=== PATIENT | female | born 1950 | race Caucasian/White ===

== ENCOUNTER → 2016-04-01 | Outpatient (CLI) | payer MEDICARE, OTHER ==
[2016-04-01 13:47] LABS: Blood Urea Nitrogen 13 mg/dL (7-17); Non-African American GFR(MDRD) >60 (>60 ml/min/1.73 sqM)
--- NOTE | 2016-04-01 15:39 | CT ---
EXAMINATION TYPE: CT chest w con DATE OF EXAM: 04/01/2016 2:35 PM COMPARISON: 01/30/2016 and 12/21/2015 HISTORY: 66-year-old female Lung cancer TECHNIQUE: Contiguous axial scanning of the chest after the administration of 100 ml mL of Omnipaque 300. Coronal/sagittal reconstructions performed. CT DLP: 415mGycm. Automatic exposure control utilized for a dose reduction. FINDINGS: Heart is normal size with trace anterior pericardial thickening/fluid. Aorta is normal caliber with a conventional arch vessel branching anatomy and mild to moderate atherosclerotic change in the descen ding aorta. No thoracic lymphadenopathy seen. No residual or recurrent left hilar abnormal soft tissue is identified. There is biapical pleural parenchymal scarring with moderate centrilobular emphysema and mild diffuse bronchial wall thickening. An 8 mm anterior right midlung pulmonary nodule axial image 33 is unchanged and was not metabolic on the prior PET/CT suggesting a benign etiology. There is some minimal patchy opacity in the right midd le lobe noted. The irregular subpleural opacities in the superior segment right lower lobe persist from 01/30/2016 b ut are improved as compared to 12/21/2015. Minimal patchy opacity along the lateral left midlung along the major fissure, axial image 37 is new from prior. Visualized upper abdomen shows no gross abnormality. Bones: A lucency within the right T11 vertebral body was present on the prior PET CT where no FDG upt manjit was demonstrated suggesting a benign etiology. No osseous destructive process. Variable vertebral compression deformities in the mid to lower thoracic spine are unchanged suggesting chronic compress ion injuries. IMPRESSION: 1. COPD with moderate emphysema. There is no evidence for recurrence at the left hilum. The irregular subpleural opacities in the superior segment left lower lobe are unchanged from 01/30/2016 but signi ficantly improved from 12/21/2015, likely representing scarring and areas of treated disease. 2. Minimal new patchy opacity in the lateral left midlung near the major fissure. Continued follow-up is recommended to exclude early metastatic disease here. 3. Some patchy infiltrate in the right middle lobe is also new. Correlate for any infectious signs/sy mptoms.
== END | disposition home or self-care (01) ==
LOC: RADCTMAIN 12:49
PROVIDERS: ATTEND Internal Medicine Hematology & Oncology
DX: C34.90 Malignant neoplasm of unspecified part of unspecified bronchus or lung (principal); J43.9 Emphysema, unspecified; R91.8 Other nonspecific abnormal finding of lung field
CPT/HCPCS: 82565; 84520; 71260; 36415; Q9967

== ENCOUNTER → 2016-04-24 | Outpatient (CLI) | payer MEDICARE, OTHER | END | disposition home or self-care (01) | LOC: LABWHC1 09:04 | PROVIDERS: ATTEND Otolaryngology | DX: E03.9 Hypothyroidism, unspecified (principal) | CPT/HCPCS: 36415; 84439; 84443 ==

== ENCOUNTER → 2016-05-07 | Outpatient (CLI) | payer MEDICARE, OTHER ==
--- NOTE | 2016-05-08 07:36 | US ---
EXAMINATION TYPE: US thyroid st tissue head/neck DATE OF EXAM: 05/07/2016 4:43 PM COMPARISON: 12/28/2014 CLINICAL HISTORY: Thyroid nodules E04.1. F/U previous GLAND SIZE: Right Lobe: 5.3 x 2.1 x 1.9 cm Overall Parenchyma: heterogenous Left Lobe: 4.4 x 1.5 x 1.5 cm Overall Parenchyma: heterogeneous Isthmus Thickness: 0.2 cm NODULES RIGHT: # of nodules measured on right: 1 1. 1.3 X 0.9 x 0.9 cm hypoechoic solid nodule at the mid pole with well-defined margins; This nodul e is wider than tall and shows intranodular vascularity. Prior size: 1.3 x 0.9 x 1.1 cm LEFT: # of nodules measured on left: 2 1. 0.7 X 0.4 x 0.6 cm hypoechoic solid nodule at the lower pole with well-defined margins; This no dule is wider than tall and shows no intranodular vascularity. Prior size: Not visualized on prior 2. 0.6 X 0.3 x 0.6 cm hypoechoic solid nodule at the upper pole with well-defined margins; This nodu le is wider than tall and shows intranodular vascularity. Prior size: 0.6 x 0.3 x 0.6 cm ISTHMUS: # of nodules measured in the isthmus: 0 IMPRESSION: Bilateral neck scanned, no abnormal lymphadenopathy noted/ Nodules seen on previous david ear stable with new sub-centimeter nodule left lower
== END | disposition home or self-care (01) ==
LOC: RADUSWWP 16:29
PROVIDERS: ATTEND Otolaryngology
DX: E04.2 Nontoxic multinodular goiter (principal)
CPT/HCPCS: 76536

== ENCOUNTER → 2016-06-29 | Outpatient (CLI) | payer MEDICARE, OTHER ==
[2016-06-29 11:29] LABS: Blood Urea Nitrogen 15 mg/dL (7-17); Non-African American GFR(MDRD) >60 (>60 ml/min/1.73 sqM)
--- NOTE | 2016-06-29 13:50 | CT ---
EXAMINATION TYPE: CT ChestAbdPelvis w con DATE OF EXAM: 06/29/2016 1:02 PM INDICATION: Patient complains of chest pain and unproductive cough. Patient has a history of small c ell lung CA. COMPARISON: 04/23/2016 chest, 10/20/2015 CT abdomen and pelvis CT DLP: 604.5 mGycm CONTRAST: Performed with Oral Contrast and with IV Contrast, patient injected with 100 mL of Omnipaque 300. TECHNIQUE: Axial images at 5 mm thick sections. Reconstructed images in the coronal plane. Delayed images through the kidneys. FINDINGS: CT CHEST: Portion of the thyroid visualized is normal. Emphysematous changes are present. Some mild pneumonitis change within the posterior left midlung. Th ere is a 0.5 cm density within the right middle lobe, series 6 image 32. Right apical scarring appear s to be present No enlarged mediastinal or hilar adenopathy is evident. The ascending aorta diameter at the level of the main pulmonary artery is 2.5 cm. The main pulmonary artery diameter at the bifurcation is 1.[address] ABDOMEN: Liver: Normal Spleen: Normal Pancreas: Normal Adrenal glands: The adrenal glands are normal. Gallbladder: Normal Kidneys: No masses are evident. No hydronephrosis is present. No cysts are present. Delayed images were obtained through the kidneys, which remain unremarkable. Aorta: Vascular calcification is within the aorta. Inferior vena cava: Normal. CT PELVIS: Loops of bowel within the abdomen and pelvis are normal. There are loops of bowel which are incom pletely distended or lack oral contrast limiting their evaluation. Fecal debris is within the colon. Appendix: Not identified. Clinical management of any suspected appendicitis will be required. Urinary bladder: Limited in evaluation. Large cystocele and herniation below the pelvic inlet is pres ent. Genitourinary structures: Uterus and ovaries are not identified. There is herniation of pelvic struct ures below the suspensor muscles of the pelvis. Herniation extends into the intrathyroidal region. Ur inary bladder as well as contrast filled loops of bowel appear to be present at this level. This was present previously. Osseous structures: No suspicious lytic or sclerotic lesions. Beam hardening artifact from the right hip is evident. Compression deformities of T12, T9, T10 are present. Mild wedge deformities of T6 and T7 are also present. IMPRESSIONS: 1. Herniation of pelvic contents below the pelvic outlet including contrast-filled loops of bowel and urinary bladder. 2. Wedge deformities and compression deformities to the mid and lower thoracic spine discussed above.
== END | disposition home or self-care (01) ==
LOC: RADCTMAIN 10:41
PROVIDERS: ATTEND Internal Medicine Hematology & Oncology
DX: Z03.89 Encounter for observation for other suspected diseases and conditions ruled out (principal); C34.92 Malignant neoplasm of unspecified part of left bronchus or lung; K63.89 Other specified diseases of intestine; N32.89 Other specified disorders of bladder
CPT/HCPCS: 82565; 84520; 71260; 74177; 36415; Q9967

== ENCOUNTER 2016-07-18 16:57 | Emergency (ER) | payer MEDICARE, OTHER ==
[2016-07-18] MEDS ORDERED: SODIUM CHLORIDE 0.9% 1,000 ML IV STA (17:26)
[2016-07-18] MEDS ORDERED: RX INFO: IV CONTRAST WAS GIVEN 1 EACH MISC MISCELLANE PRN (17:29)
--- NOTE | 2016-07-18 17:37 | ED ---
Chest Pain HPI - General Chief Complaint: Chest Pain Stated Complaint: Chest Pain/Fall Time Seen by Provider: 07/18/16 17:10 Source: patient, family, RN notes reviewed Mode of arrival: wheelchair Limitations: no limitations - History of Present Illness Initial Comments: This is a 66-year-old female history of small cell cancer who has received radiation and chemotherapy for this apparently had a recent CAT scan showed no evidence of disease who states she fell a couple days ago and presents now complains of pain to the right chest right upper quadrant and flank area. She also has some pain to the right inferior CVA region. She denies any loss of function to her upper or lower extremity shows complaints of right shoulder pain. She denies any dysuria hematuria MD Complaint: chest pain, other - Related Data Home Medications Medication Instructions Recorded Confirmed Benazepril HCl 10 - 20 mg PO DAILY@1500 08/04/13 07/18/16 Carvedilol [Coreg] 6.25 mg PO BID PRN 08/04/13 07/18/16 Simvastatin [Zocor] 20 mg PO HS 08/04/13 07/18/16 Spironolactone [Aldactone] 25 mg PO DAILY 08/04/13 07/18/16 Ubidecarenone [Coenzyme Q10] 200 mg PO DAILY 08/04/13 07/18/16 Omeprazole [PriLOSEC] 20 mg PO AC-BRKFST 12/21/14 07/18/16 Ipratropium Nebulized [Atrovent 0.5 mg INHALATION RT-QID 04/28/15 07/18/16 Nebulized] Albuterol Nebulized [Ventolin 2.5 mg INHALATION QID 10/20/15 07/18/16 Nebulized] Acyclovir [Zovirax] 800 mg PO DIRECTED PRN 11/14/15 07/18/16 LORazepam [Ativan] 0.5 mg PO BID PRN 11/14/15 07/18/16 Nystatin 100,000 Unit/ml Susp 500,000 unit PO QID PRN 11/14/15 07/18/16 [Mycostatin Oral Susp] Pediatric Multivitamin Comb#30 2 tab PO DAILY 11/14/15 07/18/16 [Multivitamin Children's Gummies] guaiFENesin [Mucinex] 600 mg PO DAILY PRN 11/14/15 07/18/16 tiZANidine [Zanaflex] 4 mg PO QID PRN 11/14/15 07/18/16 Fluticasone/Salmeterol [Advair 1 inhalation PO RT-BID 12/03/15 07/18/16 500-50 Diskus] Nicotine [Nicoderm Cq] 1 patch TRANSDERM HS 12/03/15 07/18/16 Previous Rx's Medication Instructions Recorded Aspirin 81 mg PO DAILY chew 10/28/15 Docusate [Colace] 100 mg PO DAILY PRN #0 cap 10/28/15 HYDROcodone/APAP 10-325MG [Braxton 1 tab PO Q6H PRN #120 tab 10/28/15 10-325] Latanoprost Ophth [Xalatan 0.005%] 1 drops BOTH EYES HS ml 10/28/15 Sertraline [Zoloft] 100 mg PO DAILY tab 10/28/15 Allergies Allergy/AdvReac Type Severity Reaction Status Date / Time Sulfa (Sulfonamide Allergy Severe Anaphylaxis, Verified 07/18/16 18:44 Antibiotics) Hives sulfamethoxazole Allergy Severe Anaphylaxis, Verified 07/18/16 18:44 [From Bactrim] Hives trimethoprim [From Bactrim] Allergy Severe Anaphylaxis, Verified 07/18/16 18:44 Hives erythromycin base Allergy Unknown Nausea & Verified 07/18/16 18:44 [Erythromycin Base] Vomiting morphine Allergy Unknown Verified 07/18/16 18:44 Review of Systems ROS Statement: Those systems with pertinent positive or pertinent negative responses have been documented in the HPI. ROS Other: All systems not noted in ROS Statement are negative. EKG Findings - EKG Results: EKG: interpreted by ERMD, sinus rhythm, normal axis, normal QRS, normal ST/T, no acute changes (Sinus rhythm with rate is 97 ND interval 158 QRS duration 92 QT/QTC of 364/462 this is normal. EKG this is compared with EKG dated 10/20/15 which at that time showed sinus tachycardia with nonspecific changes.) Past Medical History Past Medical History: Coronary Artery Disease (CAD), Cancer, Heart Failure, COPD , Hyperlipidemia, Hypertension Additional Past Medical History / Comment(s): RESPIRATORY FAILURE, heart attach 3 years ago, lung cancer Last Myocardial Infarction Date:: 2011 History of Any Multi-Drug Resistant Organisms: None Reported Past Surgical History: Joint Replacement, Tonsillectomy Additional Past Surgical History / Comment(s): TOTAL RIGHT HIP Past Anesthesia/Blood Transfusion Reactions: No Reported Reaction Additional Past Anesthesia/Blood Transfusion Reaction / Comment(s): PT STATES MOTHER AND SISTER HAD DIFFICULTY BREATHING. Past Psychological History: No Psychological Hx Reported, Depression Smoking Status: Current some day smoker Past Alcohol Use History: None Reported Additional Past Alcohol Use History / Comment(s): "trying to quit" Past Drug Use History: None Reported - Past Family History Mother Family Medical History: No Reported History General Exam - General Exam Comments Initial Comments: This is a well-developed asthenic appearing female awake alert oriented 3 [place] Coma Scale of 15 Limitations: no limitations General appearance: alert, in no apparent distress Head exam: Present: atraumatic, normocephalic, normal inspection Eye exam: Present: normal appearance, PERRL, EOMI. Absent: scleral icterus, conjunctival injection, periorbital swelling ENT exam: Present: normal exam, mucous membranes moist Neck exam: Present: normal inspection. Absent: tenderness, meningismus, lymphadenopathy Respiratory exam: Present: other (Patient does demonstrate kyphosis with some tenderness palpation of the right lateral inferior chest wall no definite step- off or crepitation 70 ecchymosis is noted.) Cardiovascular Exam: Present: regular rate, normal rhythm, normal heart sounds. Absent: systolic murmur, diastolic murmur, rubs, gallop, clicks GI/Abdominal exam: Present: soft, tenderness Rectal exam: Present: deferred (Some right upper quadrant tenderness palpation no definite guarding or rebound.) Extremities exam: Present: normal inspection, tenderness (Is palpation of the right proximal humerus no step-off or crepitation she does demonstrate full range of motion.) Back exam: Present: CVA tenderness (R), paraspinal tenderness. Absent: vertebral tenderness Neurological exam: Present: alert, oriented X3, CN II-XII intact Psychiatric exam: Present: normal affect, normal mood Skin exam: Present: warm, dry, intact, other (Ecchymosis as noted above). Absent: normal color Course Vital Signs 07/18/16 07/18/16 07/18/16 17:00 17:56 19:08 Temperature 98.1 F 98.8 F Pulse Rate 74 96 82 Pulse Rate [ 96 [place] Actor ] Respiratory 20 18 18 Rate Blood Pressure 147/65 106/52 132/60 O2 Sat by Pulse 99 97 100 Oximetry Chest Pain MDM - MDM Did review the imaging and reports no acute findings are seen the patient does know about the pelvic floor herniation. She did decline pain medication she had taken her own before she came to the hospital today. I did discuss findings with her and her family members she'll be discharged home. No evidence of any acute fractures or subluxations. Disposition Clinical Impression: Chest wall contusion, Contusion of rib on right side Disposition: HOME SELF-CARE Condition: Good Instructions: Rib Contusion (ED)
[2016-07-18 17:58] VITALS: RESP 18
[2016-07-18 18:30] LABS: ALT 22 U/L (9-52); AST 17 U/L (14-36); Alkaline Phosphatase 110 U/L (38-126); Amylase 51 U/L (30-110); Anion Gap 10 mmol/L; Blood Urea Nitrogen 15 mg/dL (7-17); Calcium 9.3 mg/dL (8.4-10.2); Carbon Dioxide 24 mmol/L (22-30); Chloride 105 mmol/L (98-107); Glucose 114 mg/dL (74-99); Magnesium 1.8 mg/dL (1.6-2.3); Non-African American GFR(MDRD) >60 (>60 ml/min/1.73 sqM); Potassium 4.4 mmol/L (3.5-5.1); Sodium 139 mmol/L (137-145); Total Bilirubin 0.3 mg/dL (0.2-1.3); Total Protein 6.5 g/dL (6.3-8.2)
[2016-07-18 18:33] LABS: Anisocytosis Slight; Basophils % (A) 1 %; CH 24.2; CHCM 30.7; Eosinophils # (A) 0.1 k/uL (0-0.7); Eosinophils % (A) 3 %; HCT 31.8 % (34.0-46.0); HDW 2.96; HGB 10.1 gm/dL (11.4-16.0); Hypochromasia Moderate; Luc # (Auto) 0.16; Luc % (Auto) 3; Lymphocytes # (A) 1.1 k/uL (1.0-4.8); Lymphocytes % (A) 25 %; MCH 25.2 pg (25.0-35.0); MCHC 31.7 g/dL (31.0-37.0); MCV 79.4 fL (80.0-100.0); Mean Platelet Volume 6.4; Microcytosis Slight; Monocytes # (A) 0.4 k/uL (0-1.0); Monocytes % (A) 9 %; Neutrophils # (A) 2.7 k/uL (1.3-7.7); Neutrophils % (A) 59 %; Partial Thromboplastin Time 27.5 sec (22.0-30.0); Prothrombin Time 9.9 sec (9.0-12.0); RDW 17.1 % (11.5-15.5); WBC 4.6 k/uL (3.8-10.6); WBC (Perox) 4.68
[2016-07-18 18:40] LABS: Amorphous Sediment,Urine Rare /hpf; Appearance,Urine Clear (Clear); Bilirubin,Urine Negative (Negative); Glucose,Urine (UA) Negative (Negative); Ketones,Urine Negative (Negative); Leukocyte Esterase,Urine Small (Negative); Mucus,Urine Rare /hpf; Nitrite,Urine Negative (Negative); Particle Count 2791; Protein,Urine Negative (Negative); RBC,Urine 1 /hpf (0-5); Specific Gravity,Urine 1.014 (1.001-1.035); Squamous Epithelial Cell,Urine 12 /hpf (0-4); UA Billing (MACRO vs. MICRO) MICRO; Urobilinogen,Urine <2.0 mg/dL (<2.0); WBC,Urine 5 /hpf (0-5)
--- NOTE | 2016-07-18 18:50 | XR ---
EXAMINATION TYPE: XR shoulder complete RT DATE OF EXAM: 07/18/2016 6:28 PM COMPARISON: NONE HISTORY: Pain TECHNIQUE: Shoulder examined in 3 views FINDINGS: The humeral head articulates with the glenoid. The acromio-clavicular junction is normal. No acute fractures or dislocations are evident. A follow up study can be performed 7-10 days from acute trauma for continued pain. IMPRESSION: 1. Normal Shoulder
[2016-07-18 18:51] LABS: Creatine Kinase 61 U/L (30-135)
--- NOTE | 2016-07-18 18:51 | XR ---
EXAMINATION TYPE: XR ribs RT DATE OF EXAM: 07/18/2016 6:28 PM COMPARISON: NONE HISTORY: Pain, fall 3 days prior TECHNIQUE: 2 views right ribs FINDINGS: No acute fractures are evident. No pneumothorax is evident on the images. IMPRESSION: 1. Normal right ribs
--- NOTE | 2016-07-18 18:52 | XR ---
EXAMINATION TYPE: XR chest 2V DATE OF EXAM: 07/18/2016 6:28 PM COMPARISON: 10/26/2015 INDICATION: Fall right-sided chest pain TECHNIQUE: 2 view chest FINDINGS: The heart size is normal. The pulmonary vasculature is normal. The lungs are clear. No pneumothorax is evident. Mild compression deformities are within the mid thoracic spine through se veral levels. These were present previously. IMPRESSION: 1. No acute pulmonary process.
[2016-07-18 19:04] LABS: Creatine Kinase MB 1.3 ng/mL (0.0-2.4); Troponin I <0.012 ng/mL (0.000-0.034)
--- NOTE | 2016-07-18 20:14 | CT ---
EXAMINATION TYPE: CT abdomen pelvis w con DATE OF EXAM: 07/18/2016 7:48 PM COMPARISON: NONE INDICATION: Fall today with Right sided injury DLP: 451.7 mGycm, Automated exposure control for dose reduction was used. CONTRAST: 100 mL of Omnipaque 300. Study performed without Oral Contrast TECHNIQUE: Axial images were obtained from above the diaphragm to the pubic rami in the axial plane a t 5 mm thick sections. Reconstructed images are reviewed on the computer in the coronal plane. FINDINGS: Limited CT sections are obtained the lung bases. There is some increased density or pneumonitis florence ge within the posterior medial left lung base. This was present 06/29/2016.. Coronary artery calcific ation is present. CT ABDOMEN: Liver: Normal Spleen: Normal Pancreas: Normal Adrenal glands: The adrenal glands are normal. Gallbladder: Normal Kidneys: No masses are evident. No hydronephrosis is present. No cysts are present. Delayed images were obtained through the kidneys, which remain unremarkable. Aorta: Vascular calcification is within the aorta. Inferior vena cava: Normal. CT PELVIS: There is a hernia through the pelvic floor. There is complete cystocele within the hernia sac. Multiple stones are within the urinary bladder. There are loops of bowel within the hernia which are nondilated. No obstruction is identified. There is a calcification within the left portion of th e hernia but no suspicious changes for hydronephrosis or hydroureter suggests this is a distal ureter al stone. Loops of bowel within the abdomen and pelvis are normal. Studies without oral contrast limiting. Bowel evaluation. Appendix: Normal as visualized. Genitourinary structures: Uterus and ovaries are not identified. Osseous structures: Right hip prosthesis is present. Lower thoracic compression deformity was present previously. IMPRESSIONS: 1. Large herniation through the pelvic floor including the entire urinary bladder containing stones as well as nondilated loops of nonobstructed bowel. Findings are stable 06/29/2016. 2. No post traumatic changes identified.
[2016-07-18 20:33] VITALS: BP 174/70; PULSE 94; TEMP 98.4
== END 2016-07-18 20:33 | disposition home or self-care (01) ==
LOC: EC 16:57
DX: S20.211A Contusion of right front wall of thorax, initial encounter (principal); R10.11 Right upper quadrant pain; M40.204 Unspecified kyphosis, thoracic region; I10 Essential (primary) hypertension; E78.5 Hyperlipidemia, unspecified; I50.9 Heart failure, unspecified; J44.9 Chronic obstructive pulmonary disease, unspecified; F17.200 Nicotine dependence, unspecified, uncomplicated; Z79.51 Long term (current) use of inhaled steroids; Z79.899 Other long term (current) drug therapy; Z88.1 Allergy status to other antibiotic agents; Z88.2 Allergy status to sulfonamides; Z88.5 Allergy status to narcotic agent; Z85.118 Personal history of other malignant neoplasm of bronchus and lung
CPT/HCPCS: 36415; 93005; 83880; 80053; 82150; 82550; 82553; 83690; 83735; 84484; 85025; 85610; 85730; 81001; 71020; 71100; 73030; 74177; 99285; 96360; 96361; Q9967

== ENCOUNTER → 2016-07-22 | Outpatient (CLI) | payer MEDICARE, OTHER ==
--- NOTE | 2016-07-22 17:22 | MR ---
MRI brain with and without contrast HISTORY: Lung carcinoma, headaches and dizziness Multiplanar multisequence and postcontrast images obtained through the brain following 10 cc MultiHan ce IV Correlation to prior MRI brain dated 17 December 2015 Periventricular white matter again shows confluent increased signal on inversion recovery and T2-weig hted sequences, scattered foci of hyperintensity are also present similar to prior exam. There is no hemorrhage or hydrocephalus. Corpus callosum, pituitary, cervical medullary junction, cerebellopontin e angles are stable. There are normal vascular flow voids. Mild inflammatory change present within th e ethmoid air cells. The orbits show symmetric appearance. Stable cortical atrophy. There is no restr icted diffusion. IMPRESSION: Essentially stable exam. Nonspecific white matter demyelination possibly related to chron ic small vessel ischemia. Age-related atrophy.
== END | disposition home or self-care (01) ==
LOC: RADMRIMAIN 16:20
PROVIDERS: ATTEND Internal Medicine Hematology & Oncology
DX: C34.92 Malignant neoplasm of unspecified part of left bronchus or lung (principal); G37.9 Demyelinating disease of central nervous system, unspecified; G31.1 Senile degeneration of brain, not elsewhere classified
CPT/HCPCS: 70553; A9577; 80053

== ENCOUNTER → 2016-10-02 | Outpatient (CLI) | payer MEDICARE, OTHER ==
[2016-10-02 15:08] LABS: Anisocytosis Slight; CH 24.2; CHCM 29.9; HCT 33.1 % (34.0-46.0); HDW 2.67; HGB 10.5 gm/dL (11.4-16.0); Hypochromasia Marked; MCH 25.8 pg (25.0-35.0); MCHC 31.6 g/dL (31.0-37.0); MCV 81.5 fL (80.0-100.0); Mean Platelet Volume 7.3; RBC 4.06 m/uL (3.80-5.40); RDW 17.6 % (11.5-15.5); WBC 5.3 k/uL (3.8-10.6)
[2016-10-02 15:17] LABS: ALT 26 U/L (9-52); AST 22 U/L (14-36); Alkaline Phosphatase 96 U/L (38-126); Anion Gap 11 mmol/L; Blood Urea Nitrogen 8 mg/dL (7-17); Calcium 9.3 mg/dL (8.4-10.2); Carbon Dioxide 23 mmol/L (22-30); Chloride 102 mmol/L (98-107); Glucose 134 mg/dL (74-99); Non-African American GFR(MDRD) >60 (>60 ml/min/1.73 sqM); Potassium 3.8 mmol/L (3.5-5.1); Sodium 136 mmol/L (137-145); Total Bilirubin 0.2 mg/dL (0.2-1.3); Total Protein 6.6 g/dL (6.3-8.2)
--- NOTE | 2016-10-02 16:27 | CT ---
EXAMINATION TYPE: CT ChestAbdPelvis w con DATE OF EXAM: 10/02/2016 COMPARISON: 06/29/2016 HISTORY: Lung cancer, suspected for suspicious METS CT DLP: 1045 mGycm CONTRAST: CT scan of the chest, abdomen and pelvis is performed with Oral Contrast and with IV Contrast, patien t injected with 100 mL of Omnipaque 300. CT Chest: LUNGS: Scattered emphysematous changes again noted. Right apical scarring unchanged. Pleural-based sp iculated density left lower lobe posteriorly measures 1.1 cm versus 1.1 cm previously. Nodular densit y right upper lobe and measures 7 mm and is unchanged. Linear basilar parenchymal scar atelectasis is unchanged. MEDIASTINUM: Thoracic aorta is of normal caliber. The heart is not enlarged. No eviden ce for mediastinal mass or adenopathy. HILAR STRUCTURES: No evidence for mass. No hilar adenopathy is appreciated. OTHER: No significant abnormality. CONTRAST CT ABDOMEN AND PELVIS FINDINGS: LIVER/GB: No calcified gallstones. No space occupying hepatic lesion. Biliary tree is of normal ca liber. PANCREAS: No inflammation. No distinct mass. SPLEEN: No splenic enlargement. No lesion seen. ADRENALS: No nodule. No thickening. KIDNEYS/BLADDER: No hydronephrosis. No nephrolithiasis. No disctinct renal mass. BOWEL: Normal appendix. Normal bowel caliber. No inflammation. GENITAL ORGANS: No gross abnormality. LYMPH NODES: No greater than 1cm abdominal or pelvic lymph nodes are appreciated. AORTA: No significant abnormality. OSSEOUS STRUCTURES: Right hip prosthesis noted. Multiple compression deformities of the lower thoraci c spine unchanged from prior examination. OTHER: Again noted is large pelvic floor hernia which contains loops of small bowel as well as the ur inary bladder. No evidence for bowel obstruction. IMPRESSION: 1. No evidence for metastatic disease. 2. Pleural-based spiculated density left upper lobe posteriorly is unchanged and may reflect site of postsurgical change. Correlate clinically. Underlying COPD and scattered nodularity unchanged. 3. Large hernia of the pelvic floor containing small bowel loops and urinary bladder.
== END | disposition home or self-care (01) ==
LOC: RADCTMAIN 14:42
PROVIDERS: ATTEND Internal Medicine Hematology & Oncology
DX: C34.92 Malignant neoplasm of unspecified part of left bronchus or lung (principal); R91.8 Other nonspecific abnormal finding of lung field; J44.9 Chronic obstructive pulmonary disease, unspecified; D63.0 Anemia in neoplastic disease; M48.54XA Collapsed vertebra, not elsewhere classified, thoracic region, initial encounter for fracture; K45.8 Other specified abdominal hernia without obstruction or gangrene; Z98.890 Other specified postprocedural states
CPT/HCPCS: 80053; 85027; 71260; 74177; 36415; Q9967

== ENCOUNTER 2016-10-09 18:20 | Emergency (ER) | payer MEDICARE, OTHER ==
[2016-10-09 19:45] LABS: Anisocytosis Slight; Basophils # (A) 0.1 k/uL (0-0.2); Basophils % (A) 1 %; CH 25.3; Eosinophils # (A) 0.2 k/uL (0-0.7); Eosinophils % (A) 3 %; HCT 33.1 % (34.0-46.0); HDW 2.81; HGB 10.2 gm/dL (11.4-16.0); Hypochromasia Moderate; Luc # (Auto) 0.13; Luc % (Auto) 2; Lymphocytes # (A) 1.3 k/uL (1.0-4.8); Lymphocytes % (A) 22 %; MCH 25.4 pg (25.0-35.0); MCHC 30.9 g/dL (31.0-37.0); MCV 82.1 fL (80.0-100.0); Mean Platelet Volume 7.7; Monocytes # (A) 0.4 k/uL (0-1.0); Monocytes % (A) 8 %; Neutrophils # (A) 3.6 k/uL (1.3-7.7); Neutrophils % (A) 64 %; RBC 4.03 m/uL (3.80-5.40); RDW 18.2 % (11.5-15.5); WBC 5.7 k/uL (3.8-10.6)
[2016-10-09 19:53] LABS: Anion Gap 7 mmol/L; Blood Urea Nitrogen 10 mg/dL (7-17); Calcium 8.8 mg/dL (8.4-10.2); Carbon Dioxide 27 mmol/L (22-30); Chloride 105 mmol/L (98-107); Glucose 104 mg/dL (74-99); Non-African American GFR(MDRD) >60 (>60 ml/min/1.73 sqM); Potassium 4.2 mmol/L (3.5-5.1); Sodium 139 mmol/L (137-145)
[2016-10-09 20:06] LABS: Partial Thromboplastin Time 27.4 sec (22.0-30.0)
--- NOTE | 2016-10-09 21:19 | MR ---
EXAMINATION TYPE: MR angio head wo con DATE OF EXAM: 10/09/2016 COMPARISON: NONE HISTORY: Sudden onset of Right Dilated Pupil x1 day TECHNIQUE: Time of flight images focusing on the [place] of [place] were performed without contrast. FINDINGS: There is arterial flow in the vertebrobasilar artery system. There is arterial flow in the anterior middle and posterior cerebral arteries. There is bilateral flow in the posterior communicati ng arteries. There is no mass effect. There is no midline shift. There is irregular appearance of the left middle cerebral artery. It is not clear if this is related to stenosis or artifact.. There is a rterial flow in both distal internal carotid arteries. IMPRESSION: There is irregular lumen of the left middle cerebral artery and multisegment stenosis cannot be exclu ded. No evidence of an aneurysm. If there is persistent clinical indication a CT angiogram would be h elpful to confirm or exclude left middle cerebral artery pathology.
--- NOTE | 2016-10-09 21:38 | ED ---
Recheck HPI - General Chief Complaint: Recheck/Abnormal Lab/Rx Stated Complaint: Vision, DR SENT- STAT MRI Time Seen by Provider: 10/09/16 18:47 Source: patient Mode of arrival: wheelchair Limitations: no limitations - History of Present Illness Initial Comments: 66 her female with past medical history of CAD, heart failure, COPD, HLD, HTN, lung cancer presented for evaluation of focal neurologic deficit. She states she noted that her left pupil was much larger than the right earlier today however she denies any change in her vision because she has chronic blurred vision in that left side at baseline. She went to see her goat farmer who examined her and was concerned for an aneurysm at the [place] of [place]. He sent her to the hospital for an MRA. The patient arrived at the MRI suite but was sent to the ED to obtain an order for the imaging study. She denies any other abnormalities. - Related Data Home Medications Medication Instructions Recorded Confirmed Benazepril HCl 10 - 20 mg PO DAILY@1500 08/04/13 07/18/16 Carvedilol [Coreg] 6.25 mg PO BID PRN 08/04/13 07/18/16 Simvastatin [Zocor] 20 mg PO HS 08/04/13 07/18/16 Spironolactone [Aldactone] 25 mg PO DAILY 08/04/13 07/18/16 Ubidecarenone [Coenzyme Q10] 200 mg PO DAILY 08/04/13 07/18/16 Omeprazole [PriLOSEC] 20 mg PO AC-BRKFST 12/21/14 07/18/16 Ipratropium Nebulized [Atrovent 0.5 mg INHALATION RT-QID 04/28/15 07/18/16 Nebulized] Albuterol Nebulized [Ventolin 2.5 mg INHALATION QID 10/20/15 07/18/16 Nebulized] Acyclovir [Zovirax] 800 mg PO DIRECTED PRN 11/14/15 07/18/16 LORazepam [Ativan] 0.5 mg PO BID PRN 11/14/15 07/18/16 Nystatin 100,000 Unit/ml Susp 500,000 unit PO QID PRN 11/14/15 07/18/16 [Mycostatin Oral Susp] Pediatric Multivitamin No.30 2 tab PO DAILY 11/14/15 07/18/16 [Multivitamin Children's Gummies] guaiFENesin [Mucinex] 600 mg PO DAILY PRN 11/14/15 07/18/16 tiZANidine [Zanaflex] 4 mg PO QID PRN 11/14/15 07/18/16 Fluticasone/Salmeterol [Advair 1 inhalation PO RT-BID 12/03/15 07/18/16 500-50 Diskus] Nicotine [Nicoderm Cq] 1 patch TRANSDERM HS 12/03/15 07/18/16 Previous Rx's Medication Instructions Recorded Aspirin 81 mg PO DAILY chew 10/28/15 Docusate [Colace] 100 mg PO DAILY PRN #0 cap 10/28/15 HYDROcodone/APAP 10-325MG [[place] 1 tab PO Q6H PRN #120 tab 10/28/15 10-325] Latanoprost Ophth [Xalatan 0.005%] 1 drops BOTH EYES HS ml 10/28/15 Sertraline [Zoloft] 100 mg PO DAILY tab 10/28/15 Allergies Allergy/AdvReac Type Severity Reaction Status Date / Time Sulfa (Sulfonamide Allergy Severe Anaphylaxis, Verified 10/09/16 18:37 Antibiotics) Hives sulfamethoxazole Allergy Severe Anaphylaxis, Verified 10/09/16 18:37 [From Bactrim] Hives trimethoprim [From Bactrim] Allergy Severe Anaphylaxis, Verified 10/09/16 18:37 Hives erythromycin base Allergy Unknown Nausea & Verified 10/09/16 18:37 [Erythromycin Base] Vomiting morphine Allergy Unknown Verified 10/09/16 18:37 Review of Systems ROS Statement: Those systems with pertinent positive or pertinent negative responses have been documented in the HPI. ROS Other: All systems not noted in ROS Statement are negative. Constitutional: Denies: fever, chills Eyes: Reports: other (dilated left pupil compared to the right). Denies: eye pain, eye discharge, vision change ENT: Denies: ear pain, throat pain, hearing loss Respiratory: Denies: cough, dyspnea, wheezes, hemoptysis, stridor Cardiovascular: Denies: chest pain, palpitations, dyspnea on exertion Endocrine: Denies: fatigue, polydipsia, polyuria Gastrointestinal: Denies: abdominal pain, nausea, vomiting Genitourinary: Denies: urgency, dysuria Musculoskeletal: Denies: back pain, arthralgia, myalgia Skin: Denies: rash, lesions Neurological: Denies: headache, weakness Psychiatric: Denies: anxiety, depression Hematological/Lymphatic: Denies: easy bleeding, easy bruising Past Medical History Past Medical History: Coronary Artery Disease (CAD), Cancer, Heart Failure, COPD , Hyperlipidemia, Hypertension Additional Past Medical History / Comment(s): RESPIRATORY FAILURE, heart attach 3 years ago, lung cancer Last Myocardial Infarction Date:: 2011 History of Any Multi-Drug Resistant Organisms: None Reported Past Surgical History: Joint Replacement, Tonsillectomy Additional Past Surgical History / Comment(s): TOTAL RIGHT HIP Past Anesthesia/Blood Transfusion Reactions: No Reported Reaction Additional Past Anesthesia/Blood Transfusion Reaction / Comment(s): PT STATES MOTHER AND SISTER HAD DIFFICULTY BREATHING. Past Psychological History: No Psychological Hx Reported, Depression Smoking Status: Current some day smoker Past Alcohol Use History: None Reported Past Drug Use History: None Reported - Past Family History Mother Family Medical History: No Reported History General Exam Limitations: no limitations General appearance: alert, in no apparent distress Head exam: Present: atraumatic, normocephalic, normal inspection Eye exam: Present: normal appearance, PERRL, EOMI, other (ptosis of left eye ( baseline); mild swelling to the left eyelid). Absent: scleral icterus, conjunctival injection, periorbital swelling Pupils: Present: normal accommodation ENT exam: Present: normal exam, mucous membranes moist Neck exam: Present: normal inspection. Absent: tenderness, meningismus, lymphadenopathy Respiratory exam: Present: normal lung sounds bilaterally, other (on 2L O2 due to COPD). Absent: respiratory distress, wheezes, rales, rhonchi, stridor Cardiovascular Exam: Present: regular rate, normal rhythm, normal heart sounds. Absent: systolic murmur, diastolic murmur, rubs, gallop, clicks GI/Abdominal exam: Present: soft, normal bowel sounds. Absent: distended, tenderness, guarding, rebound, rigid Rectal exam: Present: deferred Extremities exam: Present: normal inspection, full ROM, normal capillary refill. Absent: tenderness, pedal edema, joint swelling, calf tenderness Back exam: Present: normal inspection Neurological exam: Present: alert, oriented X3, CN II-XII intact Psychiatric exam: Present: normal affect, normal mood Skin exam: Present: warm, dry, intact, normal color. Absent: rash Course Vital Signs 10/09/16 10/09/16 10/09/16 18:35 19:35 20:52 Temperature 97 F L Pulse Rate 98 87 80 Respiratory 20 18 18 Rate Blood Pressure 108/52 116/55 126/60 O2 Sat by Pulse 99 94 L 97 Oximetry Medical Decision Making - Medical Decision Making 66-year-old female sent for MRI by her goat farmer due to dilated left pupil. Irregularity has since resolved but her neurologist wants to have the study obtained regardless. She states there is no change in her vision but she has decreased vision in the left eye at baseline. There is also baseline ptosis to the left eyelids but she states they have been a little bit more puffy and swollen for the last couple days only on the left. His ago examination the ptosis is noted although pupils are equal round and reactive to light and accommodation. Cranial nerves II through XII are intact without focal neurologic deficit. The patient is noted to be ambulating with normal gait and station. Dr. Sanchez was contacted and discussed his reasoning for the MRA. MRI was contacted and the environmental science technician advised on the proper study to obtain. Labs revealed no significant abnormalities. MRI of the brain showed a regular lumen of the left middle cerebral artery and multisegmental stenosis cannot be excluded. There is no evidence of an aneurysm. The patient was informed of these results and offered admission for further imaging and neuro consult however she stated that she would like to be discharged home. She is informed of potential complications that could result if the stenosis was not due to artifact and represented narrowing. She was informed that it could result in a stroke among many other things. She was further advised that other pathology would need to be ruled out. However the patient is stable and she remained adamant that she would prefer to follow-up as an outpatient. She was advised to make an appointment with her primary care physician and was given referral for neurologist. She was further informed to return to this facility if her symptoms should worsen or persist and was given return instructions. The patient acknowledged an understanding of this information and agreed with this plan of care. - Lab Data Result diagrams: 10/09/16 19:20 10/09/16 19:20 Lab Results 10/09/16 10/09/16 10/09/16 Range/Units 19:20 19:20 19:20 WBC 5.7 (3.8-10.6) k/uL RBC 4.03 (3.80-5.40) m/uL Hgb 10.2 L (11.4-16.0) gm/dL Hct 33.1 L (34.0-46.0) % MCV 82.1 (80.0-100.0) fL MCH 25.4 (25.0-35.0) pg MCHC 30.9 L (31.0-37.0) g/dL RDW 18.2 H (11.5-15.5) % Plt Count 197 (150-450) k/uL Neutrophils % 64 % Lymphocytes % 22 % Monocytes % 8 % Eosinophils % 3 % Basophils % 1 % Neutrophils # 3.6 (1.3-7.7) k/uL Lymphocytes # 1.3 (1.0-4.8) k/uL Monocytes # 0.4 (0-1.0) k/uL Eosinophils # 0.2 (0-0.7) k/uL Basophils # 0.1 (0-0.2) k/uL Hypochromasia Moderate Anisocytosis Slight PT 10.0 (9.0-12.0) sec INR 1.0 (<1.2) APTT 27.4 (22.0-30.0) sec Sodium 139 (137-145) mmol/L Potassium 4.2 (3.5-5.1) mmol/L Chloride 105 (98-107) mmol/L Carbon Dioxide 27 (22-30) mmol/L Anion Gap 7 mmol/L BUN 10 (7-17) mg/dL Creatinine 0.67 (0.52-1.04) mg/dL Est GFR (MDRD) Af Amer >60 (>60 ml/min/1.73 sqM) Est GFR (MDRD) Non-Af >60 (>60 ml/min/1.73 sqM) Glucose 104 H (74-99) mg/dL Calcium 8.8 (8.4-10.2) mg/dL Disposition Clinical Impression: Resolved focal neurological deficit Disposition: HOME SELF-CARE Condition: Stable Instructions: Transient Ischemic Attack (ED), Ischemic Stroke (DC) Referrals: Giuseppe Hernandez MD [Primary Care Provider] - 1-2 days Veronika Reaves MD [STAFF PHYSICIAN] - 1-2 days Time of Disposition: 21:38
[2016-10-09 22:08] VITALS: BP 134/63; PULSE 89; RESP 16; TEMP 97.8
== END 2016-10-09 22:07 | disposition home or self-care (01) ==
LOC: EC 18:20
DX: H57.04 Mydriasis (principal); H53.8 Other visual disturbances; H54.7 Unspecified visual loss; H02.402 Unspecified ptosis of left eyelid; E78.5 Hyperlipidemia, unspecified; I11.0 Hypertensive heart disease with heart failure; I50.9 Heart failure, unspecified; J44.9 Chronic obstructive pulmonary disease, unspecified; I25.2 Old myocardial infarction; F17.200 Nicotine dependence, unspecified, uncomplicated; Z79.51 Long term (current) use of inhaled steroids; Z79.899 Other long term (current) drug therapy; Z88.1 Allergy status to other antibiotic agents; Z88.2 Allergy status to sulfonamides; Z88.5 Allergy status to narcotic agent; Z99.81 Dependence on supplemental oxygen
CPT/HCPCS: 36415; 70544; 80048; 85025; 85610; 85730; 99284

== ENCOUNTER → 2016-12-28 | Outpatient (CLI) | payer MEDICARE, OTHER ==
[2016-12-28 15:48] LABS: Blood Urea Nitrogen 15 mg/dL (7-17); Non-African American GFR(MDRD) >60 (>60 ml/min/1.73 sqM)
--- NOTE | 2016-12-28 20:51 | CT ---
EXAMINATION TYPE: CT ChestAbdPelvis w con DATE OF EXAM: 12/28/2016 COMPARISON: 10/02/2016 HISTORY: lt lung small cell ca/poss mets CT DLP: 643.30 mGycm Automated exposure control for dose reduction was used. CONTRAST: CT scan of the chest, abdomen and pelvis is performed with Oral Contrast and with IV Contrast, patien t injected with 100 mL of Omnipaque 300. FINDINGS: LUNGS: Scattered emphysematous changes again noted. Right apical scarring unchanged. Pleural-based sp iculated density left lower lobe posteriorly measures 1.1 cm versus 1.1 cm previously. Nodular densit y right upper lobe and measures 7 mm and is unchanged. Nodular density right lower lobe image 48 is s table. Emphysematous changes are noted. Additional 5 mm nodular density superior segment right lower lobe axial image 27 stable. Vague nodularity left lower lobe measuring approximately 5 mm with at [address] 3 nodules noted also appears stable. Axial image 44. Linear basilar parenchymal scar atelectasis i s unchanged. Peribronchial wall thickening bilaterally greater on the left is stable. MEDIASTINUM: Thoracic aorta is of normal caliber. The heart is not enlarged. Stable density posterior pulmonary trunk measures 7 Hounsfield units may reflect a small amount of pericardial fluid.. HILAR STRUCTURES: No evidence for mass. No hilar adenopathy is appreciated. OTHER: There is a displaced sternal fracture appears chronic. Correlate clinically. Sclerosis in the region to suggest possible underlying pathologic fracture. There is small focal areas of sclerosis in volving the scapula and a few of the ribs which are too small to characterize. Early metastasis is no t excluded. CONTRAST CT ABDOMEN AND PELVIS FINDINGS: LIVER/GB: No calcified gallstones. No space occupying hepatic lesion. Biliary tree is of normal calib er. PANCREAS: No inflammation. No distinct mass. SPLEEN: No splenic enlargement. No lesion seen. ADRENALS: No nodule. No thickening. KIDNEYS/BLADDER: Mild bilateral pelvocaliectasis noted which appears stable may be related to the gal lbladder malpositioning cystocele. Correlate clinically. No nephrolithiasis. No distinct renal mass. Cannot exclude bladder calculi. BOWEL: Normal appendix. Normal bowel caliber. No inflammation. LYMPH NODES: No greater than 1cm abdominal or pelvic lymph nodes are appreciated. AORTA: No significant abnormality. OSSEOUS STRUCTURES: Right hip prosthesis noted. Multiple compression deformities of the lower thoraci c spine unchanged from prior examination. OTHER: Again noted is large pelvic floor hernia which contains loops of small bowel as well as the ur inary bladder. No evidence for bowel obstruction. IMPRESSION: 1. No evidence for metastatic disease. 2. Pleural-based spiculated density left upper lobe posteriorly is unchanged and may reflect site of postsurgical change. Correlate clinically. Underlying COPD and scattered nodularity unchanged. 3. Large hernia of the pelvic floor containing small bowel loops and urinary bladder. 4. Chronic appearing displaced sternal fracture. 5. Mild bilateral hydronephrosis likely secondary to the cystocele and abnormal position of the bladd er. Findings stable.
== END | disposition home or self-care (01) ==
LOC: RADCTMAIN 15:14
PROVIDERS: ATTEND Internal Medicine Hematology & Oncology
DX: C34.92 Malignant neoplasm of unspecified part of left bronchus or lung (principal); J98.4 Other disorders of lung; N13.30 Unspecified hydronephrosis
CPT/HCPCS: 82565; 84520; 71260; 74177; 36415; Q9967

== ENCOUNTER → 2017-03-29 | Outpatient (CLI) | payer MEDICARE, OTHER ==
[2017-03-29 16:43] LABS: Blood Urea Nitrogen 14 mg/dL (7-17)
--- NOTE | 2017-03-30 09:00 | CT ---
EXAMINATION TYPE: CT ChestAbdPelvis w con DATE OF EXAM: 03/29/2017 COMPARISON: 12/28/2016, 06/29/2016 and PET/CT dated 12/21/2015. HISTORY: Follow-up lung cancer. CT DLP: 677.4 mGycm. Automated Exposure Control for Dose Reduction was Utilized. CONTRAST: CT scan of the thorax, abdomen and pelvis is performed with IV Contrast, patient injected with 100 mL of Omnipaque 300. FINDINGS: LUNGS: Nodular right apical pleural thickening is unchanged. Moderate centrilobular and paraseptal em physema is most exaggerated at the lung apices. Spiculated density at the posterior margin of the lef t lower lobe on series 6 image 21 abutting the pleural surface is similar to the prior measuring appr oximately 1.5 cm, when measured on the prior exam this also measures 1.5 cm although it was stated to measure 1.1 cm. This appears unchanged. 7 mm rounded right upper lobe pulmonary nodule on series 6 i mage 27 is also unchanged. Superior segment right lower lobe 5 mm pulmonary nodule is stable from the prior. This is on series 6 image 19. Subcentimeter nodular regions within the left lung base and edilma gula on series 6 image 38 are also stable from the prior. There is no pleural effusion or pneumothora x seen. The tracheobronchial tree is patent. No residual soft tissue is seen in the region of the le ft gerry at the site of previously biopsy-proven carcinoma. Similar right upper lobe groundglass densi ty and series 6 image 9 is again seen. MEDIASTINUM: There are no greater than 1 cm hilar or mediastinal lymph nodes. Elongated fluid density in the aorticopulmonary window on series 3 image 24 measures approximately 3.4 x 1.3 cm and is uncha nged from prior, possibly posttreatment change or loculated fluid such as in the aortic recess. Mild coronary calcifications are seen. Heart is not enlarged. LIVER/GB: No hepatic masses are identified. No intrahepatic biliary ductal dilatation. Gallbladder is unremarkable without cholelithiasis.. PANCREAS: Mild pancreatic parenchymal atrophy without ductal dilatation. SPLEEN: No splenomegaly. ADRENALS: Adrenal glands are unchanged from the PET/CT of 2016 with no focal mass. Slight thickening of the left adrenal gland may relate to adrenal gland hyperplasia. KIDNEYS: Kidneys enhance symmetrically without focal lesion. BOWEL: There is redemonstration of a pelvic floor hernia containing a cystocele and loops of small schuyler wel which do not appear obstructed at this time with no proximal dilatation or pneumatosis intestinal is. No bowel obstruction. LYMPH NODES: No greater than 1cm abdominal or pelvic lymph nodes are appreciated. OSSEOUS STRUCTURES: Right femoral arthroplasty is noted. Multiple compression deformities of the lowe r thoracic spine are similar to the prior. No suspicious osseous lesion. IMPRESSION: 1. Stable bilateral pulmonary nodules dating back to 06/29/2016 superimposed upon moderate centrilobul ar and paraseptal emphysematous changes. No new pulmonary nodules. No residual soft tissue density at the left gerry in the region of the patient's previously biopsied and treated lung carcinoma. 2. No evidence of visceral, lymphatic, or osseous metastasis within the abdomen or pelvis. 3. Large pelvic floor herniation, similar to the prior exam containing loops of herniated small bowel without current evidence of obstruction.
== END | disposition home or self-care (01) ==
LOC: RADCTMAIN 16:03
PROVIDERS: ATTEND Internal Medicine Hematology & Oncology
DX: C34.92 Malignant neoplasm of unspecified part of left bronchus or lung (principal); J43.2 Centrilobular emphysema; K45.8 Other specified abdominal hernia without obstruction or gangrene; R91.8 Other nonspecific abnormal finding of lung field
CPT/HCPCS: 82565; 84520; 71260; 74177; 36415; Q9967

== ENCOUNTER → 2017-08-06 | Outpatient (CLI) | payer MEDICARE, OTHER ==
--- NOTE | 2017-08-06 21:36 | XR ---
EXAMINATION TYPE: XR thoracic spine complete DATE OF EXAM: 08/06/2017 COMPARISON: NONE HISTORY: Back pain TECHNIQUE: 3 views FINDINGS: There is osteopenia. There is thoracic kyphotic deformity with anterior wedging of several thoracic vertebra. There is 25% wedging of T10. 50% wedging of T8. 25% wedging of T7 and T6. 50% wedg ing of T5 and T4. There is no paraspinal mass. The posterior elements appear intact. IMPRESSION: Numerous osteoporotic type thoracic compression fractures. The fractures show significant progression compared to the old chest x-ray of 07/18/2016.
== END | disposition home or self-care (01) ==
LOC: RADMRIMAIN 20:13
PROVIDERS: ATTEND Internal Medicine
DX: M48.54XA Collapsed vertebra, not elsewhere classified, thoracic region, initial encounter for fracture (principal); C34.92 Malignant neoplasm of unspecified part of left bronchus or lung
CPT/HCPCS: 72072

== ENCOUNTER 2017-08-16 01:37 | Emergency (ER) | payer MEDICARE, OTHER ==
[2017-08-16] MEDS ORDERED: HYDROcodone/APAP 10-325MG 1 EACH TAB PO ONE (02:04)
--- NOTE | 2017-08-16 02:09 | ED ---
Back Pain HPI - General Chief Complaint: Back Pain/Injury Stated Complaint: Back Pain, Abdominal Pain Time Seen by Provider: 08/16/17 01:45 Source: patient Limitations: no limitations - History of Present Illness Initial Comments: This patient is a 67-year-old woman who presents with pain that radiates from her back around both sides of her chest. She states that is been going on for about a week but is been getting worse. She initially noted that the day after she had been doing some reaching above her head to put some things away. She describes the pain as aching, it is now moderate severe. The pain does get worse if she moves or if she presses on the area along the margin of the ribs. She also states that she has had this pain previously with constipation though she believes she did have reasonable bowel movements this week. MD Complaint: back pain Onset/Timin -: week(s) Similar Symptoms Previously: Yes Place: home Radiation: none Severity: severe Quality: aching Consistency: constant Worsens With: movement Associated Symptoms: denies other symptoms - Related Data Home Medications Medication Instructions Recorded Confirmed Benazepril HCl 10 - 20 mg PO DAILY@1500 08/04/13 07/18/16 Carvedilol [Coreg] 6.25 mg PO BID PRN 08/04/13 07/18/16 Simvastatin [Zocor] 20 mg PO HS 08/04/13 07/18/16 Spironolactone [Aldactone] 25 mg PO DAILY 08/04/13 07/18/16 Ubidecarenone [Coenzyme Q10] 200 mg PO DAILY 08/04/13 07/18/16 Omeprazole [PriLOSEC] 20 mg PO AC-BRKFST 12/21/14 07/18/16 Ipratropium Nebulized [Atrovent 0.5 mg INHALATION RT-QID 04/28/15 07/18/16 Nebulized] Albuterol Nebulized [Ventolin 2.5 mg INHALATION QID 10/20/15 07/18/16 Nebulized] Acyclovir [Zovirax] 800 mg PO DIRECTED PRN 11/14/15 07/18/16 LORazepam [Ativan] 0.5 mg PO BID PRN 11/14/15 07/18/16 Nystatin 100,000 Unit/ml Susp 500,000 unit PO QID PRN 11/14/15 07/18/16 [Mycostatin Oral Susp] Pediatric Multivitamin No.30 2 tab PO DAILY 11/14/15 07/18/16 [Multivitamin Children's Gummies] guaiFENesin [Mucinex] 600 mg PO DAILY PRN 11/14/15 07/18/16 tiZANidine [Zanaflex] 4 mg PO QID PRN 11/14/15 07/18/16 Fluticasone/Salmeterol [Advair 1 inhalation PO RT-BID 12/03/15 07/18/16 500-50 Diskus] Nicotine [Nicoderm Cq] 1 patch TRANSDERM HS 12/03/15 07/18/16 Previous Rx's Medication Instructions Recorded Aspirin 81 mg PO DAILY chew 10/28/15 Docusate [Colace] 100 mg PO DAILY PRN #0 cap 10/28/15 HYDROcodone/APAP 10-325MG [[place] 1 tab PO Q6H PRN #120 tab 10/28/15 10-325] Latanoprost Ophth [Xalatan 0.005%] 1 drops BOTH EYES HS ml 10/28/15 Sertraline [Zoloft] 100 mg PO DAILY tab 10/28/15 Allergies Allergy/AdvReac Type Severity Reaction Status Date / Time Sulfa (Sulfonamide Allergy Severe Anaphylaxis, Verified 08/16/17 01:45 Antibiotics) Hives sulfamethoxazole Allergy Severe Anaphylaxis, Verified 08/16/17 01:45 [From Bactrim] Hives trimethoprim [From Bactrim] Allergy Severe Anaphylaxis, Verified 08/16/17 01:45 Hives erythromycin base Allergy Unknown Nausea & Verified 08/16/17 01:45 [Erythromycin Base] Vomiting Review of Systems ROS Statement: Those systems with pertinent positive or pertinent negative responses have been documented in the HPI. ROS Other: All systems not noted in ROS Statement are negative. Constitutional: Denies: fever, chills, weakness Respiratory: Denies: cough, dyspnea Cardiovascular: Reports: chest pain. Denies: palpitations, orthopnea, edema Gastrointestinal: Reports: as per HPI, abdominal pain. Denies: nausea, vomiting , diarrhea, constipation Genitourinary: Denies: dysuria, hematuria Musculoskeletal: Reports: as per HPI, back pain Skin: Denies: rash Neurological: Denies: headache Past Medical History Past Medical History: Coronary Artery Disease (CAD), Cancer, Heart Failure, COPD , Hyperlipidemia, Hypertension Additional Past Medical History / Comment(s): RESPIRATORY FAILURE, heart attach 3 years ago, lung cancer, Rib 9 FX Last Myocardial Infarction Date:: 2011 History of Any Multi-Drug Resistant Organisms: None Reported Past Surgical History: Joint Replacement, Tonsillectomy Additional Past Surgical History / Comment(s): TOTAL RIGHT HIP, Past Anesthesia/Blood Transfusion Reactions: No Reported Reaction Additional Past Anesthesia/Blood Transfusion Reaction / Comment(s): PT STATES MOTHER AND SISTER HAD DIFFICULTY BREATHING. Past Psychological History: No Psychological Hx Reported, Depression Smoking Status: Current some day smoker Past Alcohol Use History: None Reported Past Drug Use History: None Reported - Past Family History Mother Family Medical History: No Reported History General Exam Limitations: no limitations General appearance: alert, in no apparent distress Head exam: Present: atraumatic, normocephalic Eye exam: Present: normal appearance. Absent: scleral icterus, conjunctival injection ENT exam: Present: normal oropharynx Neck exam: Present: normal inspection Respiratory exam: Present: normal lung sounds bilaterally, chest wall tenderness. Absent: respiratory distress, wheezes, rales, rhonchi, stridor Cardiovascular Exam: Present: regular rate, normal rhythm, normal heart sounds. Absent: systolic murmur, diastolic murmur, rubs, gallop GI/Abdominal exam: Present: soft, tenderness. Absent: distended, guarding, rebound, organomegaly, mass, pulsatile mass, hernia Extremities exam: Present: normal inspection, normal capillary refill. Absent: pedal edema, calf tenderness Back exam: Present: normal inspection. Absent: CVA tenderness (R), CVA tenderness (L), vertebral tenderness Neurological exam: Present: alert Skin exam: Present: warm, dry, intact, normal color. Absent: rash Course Vital Signs 08/16/17 08/16/17 08/16/17 01:40 03:01 04:22 Temperature 97.5 F L Pulse Rate 98 86 86 Respiratory 18 18 18 Rate Blood Pressure 162/93 139/63 130/59 O2 Sat by Pulse 99 100 99 Oximetry Medical Decision Making - Lab Data Result diagrams: 08/16/17 02:15 08/16/17 02:15 Lab Results 08/16/17 08/16/17 08/16/17 Range/Units 02:15 02:15 02:15 WBC 4.8 (3.8-10.6) k/uL RBC 3.98 (3.80-5.40) m/uL Hgb 12.2 (11.4-16.0) gm/dL Hct 37.5 (34.0-46.0) % MCV 94.3 (80.0-100.0) fL MCH 30.7 (25.0-35.0) pg MCHC 32.5 (31.0-37.0) g/dL RDW 13.8 (11.5-15.5) % Plt Count 228 (150-450) k/uL Neutrophils % 53 % Lymphocytes % 30 % Monocytes % 9 % Eosinophils % 5 % Basophils % 1 % Neutrophils # 2.5 (1.3-7.7) k/uL Lymphocytes # 1.4 (1.0-4.8) k/uL Monocytes # 0.4 (0-1.0) k/uL Eosinophils # 0.2 (0-0.7) k/uL Basophils # 0.0 (0-0.2) k/uL D-Dimer 0.84 H (<0.60) mg/L FEU Sodium 142 (137-145) mmol/L Potassium 3.9 (3.5-5.1) mmol/L Chloride 103 (98-107) mmol/L Carbon Dioxide 30 (22-30) mmol/L Anion Gap 9 mmol/L BUN 17 (7-17) mg/dL Creatinine 0.70 (0.52-1.04) mg/dL Est GFR (CKD-EPI)AfAm >90 (>60 ml/min/1.73 sqM) Est GFR (CKD-EPI)NonAf 89 (>60 ml/min/1.73 sqM) Glucose 111 H (74-99) mg/dL Calcium 9.1 (8.4-10.2) mg/dL Total Bilirubin <0.1 L (0.2-1.3) mg/dL AST 19 (14-36) U/L ALT 33 (9-52) U/L Alkaline Phosphatase 110 (38-126) U/L Troponin I (0.000-0.034) ng/mL Total Protein 5.5 L (6.3-8.2) g/dL Albumin 3.4 L (3.5-5.0) g/dL Amylase 47 (30-110) U/L Lipase 22 L (23-300) U/L 08/16/17 Range/Units 02:15 WBC (3.8-10.6) k/uL RBC (3.80-5.40) m/uL Hgb (11.4-16.0) gm/dL Hct (34.0-46.0) % MCV (80.0-100.0) fL MCH (25.0-35.0) pg MCHC (31.0-37.0) g/dL RDW (11.5-15.5) % Plt Count (150-450) k/uL Neutrophils % % Lymphocytes % % Monocytes % % Eosinophils % % Basophils % % Neutrophils # (1.3-7.7) k/uL Lymphocytes # (1.0-4.8) k/uL Monocytes # (0-1.0) k/uL Eosinophils # (0-0.7) k/uL Basophils # (0-0.2) k/uL D-Dimer (<0.60) mg/L FEU Sodium (137-145) mmol/L Potassium (3.5-5.1) mmol/L Chloride (98-107) mmol/L Carbon Dioxide (22-30) mmol/L Anion Gap mmol/L BUN (7-17) mg/dL Creatinine (0.52-1.04) mg/dL Est GFR (CKD-EPI)AfAm (>60 ml/min/1.73 sqM) Est GFR (CKD-EPI)NonAf (>60 ml/min/1.73 sqM) Glucose (74-99) mg/dL Calcium (8.4-10.2) mg/dL Total Bilirubin (0.2-1.3) mg/dL AST (14-36) U/L ALT (9-52) U/L Alkaline Phosphatase (38-126) U/L Troponin I <0.012 (0.000-0.034) ng/mL Total Protein (6.3-8.2) g/dL Albumin (3.5-5.0) g/dL Amylase (30-110) U/L Lipase (23-300) U/L - EKG Data -: EKG Interpreted by Nd EKG shows normal: sinus rhythm, axis (Normal), intervals (normal), QRS complexes (Normal ), ST-T waves (normal) Rate: normal (Rate approximately 88 bpm) Interpretation: normal EKG Disposition Clinical Impression: Chest wall pain Disposition: HOME SELF-CARE Condition: Good Instructions: Chest Pain (ED), Rib Fracture (ED) Is patient prescribed a controlled substance at d/c from ED?: No Referrals: Giuseppe Hernandez MD [Primary Care Provider] - 1-2 days
[2017-08-16 02:24] LABS: Basophils % (A) 1 %; Eosinophils # (A) 0.2 k/uL (0-0.7); Eosinophils % (A) 5 %; HCT 37.5 % (34.0-46.0); HGB 12.2 gm/dL (11.4-16.0); Lymphocytes # (A) 1.4 k/uL (1.0-4.8); Lymphocytes % (A) 30 %; MCH 30.7 pg (25.0-35.0); MCHC 32.5 g/dL (31.0-37.0); MCV 94.3 fL (80.0-100.0); Mean Platelet Volume 7.5; Monocytes # (A) 0.4 k/uL (0-1.0); Monocytes % (A) 9 %; Neutrophils # (A) 2.5 k/uL (1.3-7.7); Neutrophils % (A) 53 %; Platelet Count 228 k/uL (150-450); RBC 3.98 m/uL (3.80-5.40); RDW 13.8 % (11.5-15.5); WBC 4.8 k/uL (3.8-10.6)
[2017-08-16 02:40] LABS: ALT 33 U/L (9-52); AST 19 U/L (14-36); Albumin 3.4 g/dL (3.5-5.0); Alkaline Phosphatase 110 U/L (38-126); Amylase 47 U/L (30-110); Anion Gap 9 mmol/L; Blood Urea Nitrogen 17 mg/dL (7-17); Calcium 9.1 mg/dL (8.4-10.2); Carbon Dioxide 30 mmol/L (22-30); Chloride 103 mmol/L (98-107); Glucose 111 mg/dL (74-99); Lipase 22 U/L (23-300); Potassium 3.9 mmol/L (3.5-5.1); Sodium 142 mmol/L (137-145); Total Bilirubin <0.1 mg/dL (0.2-1.3); Total Protein 5.5 g/dL (6.3-8.2)
--- NOTE | 2017-08-16 03:16 | XR ---
EXAM: XR Chest, 2 Views CLINICAL HISTORY: ITS.REASON XR Reason: Chest Pain TECHNIQUE: Frontal and lateral views of the chest. COMPARISON: 07/18/16 FINDINGS: Lungs: Unremarkable. No consolidation. Pleural space: Unremarkable. No pneumothorax. Heart: Unremarkable. No cardiomegaly. Mediastinum: Unremarkable. Bones/joints: Wedge deformities of thoracic spine which appear to be unchanged from prior study IMPRESSION: No acute infiltrates or effusions noted. Note significant change from the prior study
--- NOTE | 2017-08-16 04:43 | CT ---
EXAM: CT Angiography Chest With Intravenous Contrast CLINICAL HISTORY: ITS.REASON CT Reason: Pain TECHNIQUE: Axial computed tomographic angiography images of the chest with intravenous contrast using pulmonary embolism protocol. DLP is 127.90 mGy-cm. This CT exam was performed using one or more of the following dose reduction techniques: automated exposure control, adjustment of the mA and/or kV according to patient size, and/or use of iterative reconstruction technique. MIP reconstructed images were created and reviewed. Coronal and sagittal reformatted images were created and reviewed. COMPARISON: CT 03/29/17. There is a chest x-ray from same day without a prior report, as well. FINDINGS: There is no evidence for pulmonary embolus. Previously described areas of nodularity along with areas of scarring and posttreatment changes again noted. No significant increase in size of lung nodules. Emphysematous changes and other unchanged findings. No superimposed consolidation on chronic lung findings. Old fractures. There are interval rib fractures since the previous exam but these have callus formation and do not appear acute. IMPRESSION: No evidence for PE. Interval rib fractures though these do not appear acute. Emphysema and other unchanged findings.
[2017-08-16 05:25] VITALS: BP 143/68; PULSE 82; RESP 20; TEMP 98.1
== END 2017-08-16 05:25 | disposition home or self-care (01) ==
LOC: EC 01:37
DX: R07.89 Other chest pain (principal); M54.9 Dorsalgia, unspecified; J44.9 Chronic obstructive pulmonary disease, unspecified; I25.10 Atherosclerotic heart disease of native coronary artery without angina pectoris; I11.0 Hypertensive heart disease with heart failure; I50.9 Heart failure, unspecified; E78.5 Hyperlipidemia, unspecified; J96.90 Respiratory failure, unspecified, unspecified whether with hypoxia or hypercapnia; F17.200 Nicotine dependence, unspecified, uncomplicated; Z85.118 Personal history of other malignant neoplasm of bronchus and lung; Z79.51 Long term (current) use of inhaled steroids; Z79.899 Other long term (current) drug therapy; Z88.1 Allergy status to other antibiotic agents; Z88.2 Allergy status to sulfonamides; Z96.641 Presence of right artificial hip joint
CPT/HCPCS: 36415; 93005; 85379; 80053; 82150; 83690; 84484; 85025; 71046; 71275; 99284; Q9967

== ENCOUNTER → 2017-08-30 | Outpatient (CLI) | payer MEDICARE, OTHER ==
[2017-08-30 16:23] LABS: Blood Urea Nitrogen 16 mg/dL (7-17)
--- NOTE | 2017-08-31 08:40 | CT ---
EXAMINATION TYPE: CT chest w con DATE OF EXAM: 08/30/2017 COMPARISON: 03/29/2017 HISTORY: Lung cancer, suspect mets. CT DLP: 112 mGycm, Automated exposure control for dose reduction was used. CONTRAST: Performed injected with 100 mL of Isovue M300. TECHNIQUE: Axial images were obtained at 5 mm thick sections. Reconstructed images are reviewed on [employer] computer in the coronal plane. FINDINGS: Portion of the thyroid visualized is normal. The right apical thickening may be somewhat diminished from comparison. Left apical thickening is min imal. There is an area of irregular increased density within the medial left upper lobe. This could be an a kris of pneumonitis is an interval change from comparison. There is an area of increased density within the posterior left midlung density pleural margin. This currently measures 1.7 cm in transverse dimension slightly increased from the 1.6 cm. Area of pneumon itis slightly more anterior and lateral. This was present previously. A nodule within the right middle lobe right mid lung measures 0.9 cm utilizing the same axis for abdullahi urement from prior. This previously measured 0.7 cm. Small area of pneumonitis is in the posterior medial left lung base, series 4 image 36. No enlarged mediastinal or hilar adenopathy is evident. The ascending aorta diameter at the level o f the main pulmonary artery is 2.7 cm. The main pulmonary artery diameter at the bifurcation is 2.[address] sections are obtained through the upper abdomen. Abdomen is essentially unremarkable. IMPRESSIONS: 1. Increasing size nodule right middle lobe currently 0.9 cm up from 0.7 cm. 2. Increasing density along the posterior left periphery increased from 1.6 cm to 1.7 cm. This may be measurement error. 3. New irregular density on the left apex atelectasis and pneumonitis could be considered. Developing mass is not excluded. Continued follow-up is recommended.
== END | disposition home or self-care (01) ==
LOC: RADCTMAIN 15:48
PROVIDERS: ATTEND Internal Medicine Hematology & Oncology
DX: C34.92 Malignant neoplasm of unspecified part of left bronchus or lung (principal); R91.8 Other nonspecific abnormal finding of lung field
CPT/HCPCS: 82565; 84520; 71260; 36415; Q9967

== ENCOUNTER → 2017-09-24 | Outpatient (CLI) | payer MEDICARE, OTHER ==
--- NOTE | 2017-09-24 15:01 | NM ---
EXAMINATION TYPE: NM bone scan whole body DATE OF EXAM: 09/24/2017 COMPARISON: Previous study dated 10/18/2015. HISTORY: Lung cancer. Delayed whole-body scanning was performed following the injection of 23.6 mCi Tc 99m MDP. Images acq uired 3 hours post injection. FINDINGS: There are continues to be thoracic spine activity at what appears to be T7 and T8. There is some linear array of activity on the right which may be secondary to trauma. There is activity noted at the costovertebral junction on the right at the T8 level. There is a focus of increased activity in the xiphoid process. This may have been present previously. There is increased activity noted in t he 10th rib on the left and the ninth rib on the right. Focus of increased activity in the proximal r ight femur is less clearly visualized. No other definite foci of abnormal activity are seen. IMPRESSION: 1. NEW AREAS OF ACTIVITY IN THE RIBS BILATERALLY. 2. CONTINUED ACTIVITY IN THE THORACIC SPINE. 3. REDUCED ACTIVITY IN THE PROXIMAL RIGHT FEMUR.
== END | disposition home or self-care (01) ==
LOC: RADNMMAIN 11:02
PROVIDERS: ATTEND Internal Medicine Critical Care Medicine
DX: C79.51 Secondary malignant neoplasm of bone (principal); Z88.0 Allergy status to penicillin; Z88.1 Allergy status to other antibiotic agents; Z88.2 Allergy status to sulfonamides
CPT/HCPCS: 78306; A9503

== ENCOUNTER → 2017-12-10 | Outpatient (CLI) | payer MEDICARE, OTHER ==
[2017-12-10 18:03] LABS: Blood Urea Nitrogen 15 mg/dL (7-17)
--- NOTE | 2017-12-12 19:35 | CT ---
EXAMINATION TYPE: CT ChestAbdPelvis w con DATE OF EXAM: 12/10/2017 INDICATION: Lung cancer, observation for suspected Mets COMPARISON: 08/30/2017, 03/29/2017 CT DLP: 767 mGycm CONTRAST: Performed with Oral Contrast and with IV Contrast, patient injected with 100 ml mL of Isovue 300. TECHNIQUE: Axial images at 5 mm thick sections. Reconstructed images in the coronal plane. Delayed images through the kidneys. FINDINGS: CT CHEST: Portion of the thyroid visualized is normal. Right apical scarring is present. However, this area appears larger currently estimated to measure 1. 7 x 2.0 cm. Previous transverse dimension is 1.3 cm. There is a small stable density along the periphery of the posterior lateral right apex estimated at 0.5 cm which is stable. Some streak opacities through the posterior left upper lung. There is a 3.3 c m pleural thickening along its posterior margin which appears larger than the comparison. Definite ho wever is less currently estimated at 0.8 cm, previous 1.7 cm. 0.3 cm density is in the periphery of t he left midlung was present previously. Posterior lung nodule measuring 0.5 cm is present series 3 im age 30. This area appears larger than comparison. Adjacent nodule which is pleural-based measures 0.6 cm appears to be new. There is a 0.4 cm nodule in the posterior left lung not previously identified. Series 3 image 36. There is pleural thickening and increased density at the posterior lateral left l bassem base. There may be a masslike area measuring 1.7 x 2.9 cm which appears to be new. Atelectasis an d new mass should be considered. Series 3 image 42 adjacent small medial tiny nodules are present. Emphysematous changes are through the lungs. No enlarged mediastinal or hilar adenopathy is evident. The ascending aorta diameter at the level of the main pulmonary artery is 2.7 cm. The main pulmonary artery diameter at the bifurcation is 0.[address] ABDOMEN: Liver: Normal Spleen: Normal Pancreas: Atrophic. Adrenal glands: The adrenal glands are normal. Gallbladder: Normal Kidneys: No masses are evident. No hydronephrosis is present. No cysts are present. Delayed images were obtained through the kidneys, which remain unremarkable. Aorta: Vascular calcification is within the aorta. Inferior vena cava: Normal. CT PELVIS: Lower pelvis is limitation due to beam hardening artifact from right hip prosthesis. There is a large rectocele with loops of bowel urinary bladder involvement. Loops of bowel within the abdomen and pelvis are normal. There are loops of bowel which are incom pletely distended or lack oral contrast limiting their evaluation. Fecal debris is within the colon. Appendix: Normal as visualized. Urinary bladder: Decompressed with very limited evaluation. Descent into the hernia sac at the perine um is evident. Genitourinary structures: Uterus and ovaries are not identified. Osseous structures: Scattered punctate densities are within the left hip which could be bone islands. Tiny metastatic sclerotic lesions are not excluded. Bone scan previously demonstrated axial and rib metastasis. IMPRESSIONS: 1. New density in the posterior left lung base. Small tiny nodules are adjacent. Atelectasis and mass should be considered. 2. Increased size of the right apical density. While scarring could be considered with volume averagi ng, neoplasm is not excluded at this time. 3. Peroneal hernia containing loops of bowel and urinary bladder. 4. Metastatic lesions to the osseous structures are less well visualized than bone scan. Thoracic spi ne compression deformities and metastases are evident.
== END | disposition home or self-care (01) ==
LOC: RADCTMAIN 17:19
PROVIDERS: ATTEND Internal Medicine Hematology & Oncology
DX: C79.51 Secondary malignant neoplasm of bone (principal); R91.8 Other nonspecific abnormal finding of lung field; C34.92 Malignant neoplasm of unspecified part of left bronchus or lung
CPT/HCPCS: 82565; 84520; 71260; 74177; 36415; Q9967

== ENCOUNTER → 2017-12-23 | Outpatient (CLI) | payer MEDICARE, OTHER ==
--- NOTE | 2017-12-23 14:22 | US ---
EXAMINATION TYPE: US venous doppler duplex LE LT DATE OF EXAM: 12/23/2017 2:14 PM COMPARISON: Left lower extremity venous ultrasound December 20, 2015 CLINICAL HISTORY: R60.0left leg edema; r/o dvt. Left leg swelling, no known prior DVT SIDE PERFORMED: Left TECHNIQUE: The lower extremity deep venous system is examined utilizing real time linear array sonog senia with graded compression, doppler sonography and color-flow sonography. VESSELS IMAGED: External Iliac Vein (EIV) Common Femoral Vein Deep Femoral Vein Greater Saphenous Vein * Femoral Vein Popliteal Vein Small Saphenous Vein * Proximal Calf Veins (* superficial vessels) Grayscale, color doppler, spectral doppler imaging performed of the deep veins of the left lower extr emity. There is normal flow, compressibility, vascular waveforms. Left Leg: Negative for DVT Attempted to call 's office at time of exam, no answer IMPRESSION: No ultrasound evidence for acute DVT in the left lower extremity.
== END | disposition home or self-care (01) ==
LOC: RADUSWWP 13:44
PROVIDERS: ATTEND Internal Medicine
DX: R60.0 Localized edema (principal)

== ENCOUNTER → 2018-03-17 | Outpatient (CLI) | payer MEDICARE, OTHER ==
[2018-03-17 16:24] LABS: Blood Urea Nitrogen 18 mg/dL (7-17)
--- NOTE | 2018-03-18 16:56 | CT ---
EXAMINATION TYPE: CT ChestAbdPelvis w con DATE OF EXAM: 03/17/2018 INDICATION: lung ca, check for mets COMPARISON: 12/10/2017 CT DLP: 462 mGycm CONTRAST: Performed with Oral Contrast and with IV Contrast, patient injected with 100 mL of Isovue 370. TECHNIQUE: Axial images at 5 mm thick sections. Reconstructed images in the coronal plane. Delayed images through the kidneys. FINDINGS: CT CHEST: Portion of the thyroid visualized is normal. No suspicious lung nodules or focal infiltrates are present. Emphysematous changes are present throug hout the lung noyola. There are some areas of pneumonitis within the posterior left midlung. Example image series 4 image 23. There is stranding extending posterior to the left hilum may reflect the pat ient's reported lung cancer. This was present previously has a somewhat similar appearance. No enlarged mediastinal or hilar adenopathy is evident. The ascending aorta diameter at the level of the main pulmonary artery is 2.9 cm. The main pulmonary artery diameter at the bifurcation is 2.3 cm. There is contrast filling the esophagus. CT ABDOMEN: Liver: There may be some hepatomegaly. No discrete masses are evident. Spleen: Normal Pancreas: Pancreatic duct within the body the pancreas is prominent at 0.3 cm. Normal less than 0.2 c m. The pancreas appears atrophic. Adrenal glands: Not identified due to little abdominal fat. Gallbladder: Normal Kidneys: No masses are evident. No hydronephrosis is present. No cysts are present. Delayed images were obtained through the kidneys, which remain unremarkable. Aorta: Vascular calcification is within the aorta. Inferior vena cava: Normal. CT PELVIS: Lower pelvis is limited due to beam hardening artifact from the right hip prosthesis. Loops of bowel visualized within the pelvis appear unremarkable. There are loops of bowel which are i ncompletely distended or lack oral contrast limiting their evaluation. There is a perirectal hernia containing multiple loops of bowel. Cystocele appears to be involved as well. There are likely multiple calcifications within the cystocele Appendix: Not identified. Urinary bladder: Normal. Genitourinary structures: Uterus is not identified. Osseous structures: The compression deformities within the mid thoracic spine appears stable. Osseous structures appear unchanged from the comparison. IMPRESSIONS: 1. Stable cystocele containing calcifications and rectocele with adjacent loops of bowel with contras t through the perineal region. 2. No suspicious metastatic lesions. 3. Prominent pancreatic duct body the pancreas. 4. Reflux of contrast into the esophagus.
== END | disposition home or self-care (01) ==
LOC: RADCTMAIN 15:38
PROVIDERS: ATTEND Internal Medicine Hematology & Oncology
DX: C34.92 Malignant neoplasm of unspecified part of left bronchus or lung (principal); N81.10 Cystocele, unspecified; N81.6 Rectocele; Z88.2 Allergy status to sulfonamides; Z88.1 Allergy status to other antibiotic agents
CPT/HCPCS: 82565; 84520; 71260; 74177; 36415; Q9967

== ENCOUNTER → 2018-05-02 | Outpatient (CLI) | payer MEDICARE, OTHER | END | disposition home or self-care (01) | LOC: RADCTMAIN 16:30 | PROVIDERS: ATTEND Internal Medicine Hematology & Oncology | DX: Z53.9 Procedure and treatment not carried out, unspecified reason (principal) ==